=== PATIENT | male | born 1985 | race Caucasian/White ===

== ENCOUNTER 2017-08-16 17:13 | Inpatient (IN) | payer OTHER ==
[2017-08-16] MEDS: ONDANSETRON 4MG/2ML VIAL (J2405) IV (17:33)
[2017-08-16] MEDS: MORPHINE 4 MG/ML 1ML VIAL/SYRINGE (J2270) IV ×3 (17:33→22:14)
[2017-08-16 19:30] LABS: BASO % 0.6 % (0.0-1.0); EOS # 0.3 10^3/uL (0.0-0.50); EOS % 4.5 % (0.0-3.0); HEMATOCRIT 40.4 % (42.0-52.0); IMMATURE GRANULOCYTE % 0.1 % (0-3.0); LYMPH % 28.4 % (24.0-44.0); MEAN CORPUSCULAR HEMOGLOBIN 31.5 pg (27.0-33.0); MEAN CORPUSCULAR HGB CONC 34.7 g/dl (32.0-36.5); MONO # 0.7 10^3/uL (0.0-0.8); MONO % 9.7 % (0.0-5.0); NEUTROPHILS % 56.7 % (36.0-66.0); PLATELET COUNT, AUTOMATED 210 10^3/uL (150-450); RED BLOOD COUNT 4.44 10^6/uL (4.30-6.10); RED CELL DISTRIBUTION WIDTH 11.5 % (11.5-14.5); WHITE BLOOD COUNT 7.1 10^3/uL (4.0-10.0)
[2017-08-16 19:34] LABS: INR 1.02; PROTHROMBIN TIME 13.5 SECONDS (12.4-14.5)
[2017-08-16 19:35] LABS: PARTIAL THROMBOPLASTIN TIME 29.2 SECONDS (26.8-37.9)
[2017-08-16 19:38] LABS: ANION GAP 6 MEQ/L (8-16); BLOOD UREA NITROGEN 22 MG/DL (7-18); CARBON DIOXIDE LEVEL 28 MEQ/L (21-32); CHLORIDE LEVEL 108 MEQ/L (98-107); CREATININE FOR GFR 1.48 MG/DL (0.70-1.30); GLOMERULAR FILTRATION RATE 58.6 (>60); GLUCOSE, FASTING 105 MG/DL (70-100); POTASSIUM SERUM 4.3 MEQ/L (3.5-5.1); SODIUM LEVEL 142 MEQ/L (136-145)
[2017-08-16] MEDS ORDERED: PERCOCET 5MG/325MG TAB PO ×2 (21:45)
[2017-08-16] MEDS ORDERED: MORPHINE 2 MG/ML 1ML SYRINGE (J2270) As Ordered (22:03)
[2017-08-16] MEDS: PERCOCET 5MG/325MG TAB PO (23:32)
[2017-08-17] MEDS: LR 1,000 ML IV ×4 (00:44→23:45)
[2017-08-17] MEDS: MORPHINE 4 MG/ML 1ML VIAL/SYRINGE (J2270) IV (00:49)
[2017-08-17] MEDS: PERCOCET 5MG/325MG TAB PO ×3 (04:06→13:50)
[2017-08-17] MEDS: ceFAZolin 2 GM/D5W 50 ML IV BAG (J0690 PER 500MG) As Ordered (09:07)
[2017-08-17] MEDS ORDERED: MIDAZOLAM INJ 2 MG/2 ML VIAL (J2250) As Ordered (09:29)
[2017-08-17] MEDS ORDERED: PROPOFOL 200 MG/20 ML VIAL As Ordered (09:29)
[2017-08-17] MEDS ORDERED: LIDOCAINE 2% INJ 100 MG/5 ML SDV (FOR ANES.) As Ordered (09:29)
[2017-08-17] MEDS ORDERED: ROCURONIUM BROMIDE 50 MG/5 ML VIAL As Ordered (09:29)
[2017-08-17] MEDS ORDERED: HYDROmorphone HCL 2 MG/ML 1ML VIAL (J1170) As Ordered (09:29)
[2017-08-17] MEDS ORDERED: fentaNYL 250 MCG/5 ML INJECTION (J3010) As Ordered (09:29)
[2017-08-17] MEDS ORDERED: ONDANSETRON 4MG/2ML VIAL (J2405) As Ordered ×2 (09:29→13:18)
[2017-08-17] MEDS ORDERED: dexameTHASONE 4 MG/ML 1ML VIAL (J1100) As Ordered (09:29)
[2017-08-17] MEDS ORDERED: GLYCOPYRROLATE INJ 0.2 MG/ML 2 ML VIAL As Ordered ×2 (09:30)
[2017-08-17] MEDS ORDERED: NEOSTIGMINE 10 MG/10 ML VIAL (J2710) As Ordered (09:30)
[2017-08-17] MEDS ORDERED: ePHEDrine SULFATE 25 MG/5 ML(5MG/ML) SYRINGE As Ordered (10:05)
[2017-08-17] MEDS ORDERED: fentaNYL 100 MCG/2 ML INJECTION (J3010) As Ordered (13:17)
[2017-08-17] MEDS ORDERED: MEPERIDINE INJ 25 MG/ML VIAL (J2175) As Ordered (13:18)
[2017-08-17] MEDS ORDERED: PERCOCET 5MG/325MG TAB As Ordered (13:18)
[2017-08-17] MEDS: MEPERIDINE INJ 25 MG/ML VIAL (J2175) IV ×2 (13:20→13:25)
[2017-08-17] MEDS: ONDANSETRON 4MG/2ML VIAL (J2405) IV (13:20)
[2017-08-17] MEDS: fentaNYL 100 MCG/2 ML INJECTION (J3010) IV ×4 (13:20→13:35)
[2017-08-17] MEDS ORDERED: diphenhydrAMINE 25 MG CAP As Ordered (13:25)
[2017-08-17] MEDS: diphenhydrAMINE 25 MG CAP PO (13:30)
[2017-08-17] MEDS ORDERED: METOCLOPRAMIDE INJ 10MG/2ML VIAL (J2765) IV (13:30)
[2017-08-17] MEDS: ACETAMINOPHEN 500 MG TAB PO ×2 (14:00→22:30)
[2017-08-17] MEDS: oxyCODONE 5MG TAB PO (20:29)
[2017-08-18] MEDS: oxyCODONE 5MG TAB PO ×7 (01:50→22:12)
[2017-08-18] MEDS: ACETAMINOPHEN 500 MG TAB PO ×3 (05:46→22:13)
[2017-08-18 06:57] LABS: HEMATOCRIT 35.2 % (42.0-52.0); HEMOGLOBIN 12.2 g/dl (13.5-17.5); MEAN CORPUSCULAR HEMOGLOBIN 31.9 pg (27.0-33.0); MEAN CORPUSCULAR HGB CONC 34.7 g/dl (32.0-36.5); MEAN CORPUSCULAR VOLUME 91.9 fl (80.0-96.0); PLATELET COUNT, AUTOMATED 169 10^3/uL (150-450); RED BLOOD COUNT 3.83 10^6/uL (4.30-6.10); RED CELL DISTRIBUTION WIDTH 11.7 % (11.5-14.5); WHITE BLOOD COUNT 9.3 10^3/uL (4.0-10.0)
[2017-08-18 07:19] LABS: ANION GAP 6 MEQ/L (8-16); BLOOD UREA NITROGEN 13 MG/DL (7-18); CALCIUM LEVEL 8.4 MG/DL (8.5-10.1); CARBON DIOXIDE LEVEL 30 MEQ/L (21-32); CHLORIDE LEVEL 105 MEQ/L (98-107); CREATININE FOR GFR 1.25 MG/DL (0.70-1.30); GLOMERULAR FILTRATION RATE > 60.0 (>60); GLUCOSE, FASTING 109 MG/DL (70-100); POTASSIUM SERUM 3.7 MEQ/L (3.5-5.1); SODIUM LEVEL 141 MEQ/L (136-145)
[2017-08-18] MEDS: MORPHINE 4 MG/ML 1ML VIAL/SYRINGE (J2270) IV ×4 (08:17→18:18)
[2017-08-18] MEDS: ENOXAPARIN 40 MG/0.4 ML SYRINGE (J1650) SC (08:34)
[2017-08-18] MEDS: SENOKOT S TAB PO ×2 (08:34→20:32)
[2017-08-18] MEDS: MIRALAX *UNIT DOSE* 17GM PACKET PO (08:34)
[2017-08-18] MEDS: MOM 30ML SUSPENSION UDC PO (08:34)
[2017-08-18] MEDS: FLEET ENEMA PR (19:02)
[2017-08-19] MEDS: oxyCODONE 5MG TAB PO ×4 (00:44→09:29)
[2017-08-19] MEDS: ACETAMINOPHEN 500 MG TAB PO (05:00)
[2017-08-19] MEDS: FLEET ENEMA PR (05:46)
[2017-08-19 09:02] LABS: HEMATOCRIT 34.3 % (42.0-52.0); HEMOGLOBIN 11.8 g/dl (13.5-17.5); MEAN CORPUSCULAR HEMOGLOBIN 31.7 pg (27.0-33.0); MEAN CORPUSCULAR HGB CONC 34.4 g/dl (32.0-36.5); MEAN CORPUSCULAR VOLUME 92.2 fl (80.0-96.0); PLATELET COUNT, AUTOMATED 165 10^3/uL (150-450); RED BLOOD COUNT 3.72 10^6/uL (4.30-6.10); RED CELL DISTRIBUTION WIDTH 11.3 % (11.5-14.5); WHITE BLOOD COUNT 9.1 10^3/uL (4.0-10.0)
[2017-08-19 09:18] LABS: ANION GAP 5 MEQ/L (8-16); BLOOD UREA NITROGEN 13 MG/DL (7-18); CALCIUM LEVEL 8.3 MG/DL (8.5-10.1); CARBON DIOXIDE LEVEL 30 MEQ/L (21-32); CHLORIDE LEVEL 104 MEQ/L (98-107); CREATININE FOR GFR 1.25 MG/DL (0.70-1.30); GLOMERULAR FILTRATION RATE > 60.0 (>60); GLUCOSE, FASTING 131 MG/DL (70-100); SODIUM LEVEL 139 MEQ/L (136-145)
[2017-08-19] MEDS: MIRALAX *UNIT DOSE* 17GM PACKET PO (09:27)
[2017-08-19] MEDS: MOM 30ML SUSPENSION UDC PO (09:27)
[2017-08-19] MEDS: LR 1,000 ML IV (09:27)
[2017-08-19] MEDS: ENOXAPARIN 40 MG/0.4 ML SYRINGE (J1650) SC (09:28)
[2017-08-19] MEDS: SENOKOT S TAB PO (09:28)
[2017-08-19] MEDS: BISACODYL 10 MG SUPP PR (09:28)
== END 2017-08-19 16:35 | disposition home or self-care (01) | DRG 494 ==
LOC: M SDC 08-17 15:01 → M MS5PR 08-17 15:02 → M ED 17:13 → M SDC 20:35 → M MS5PR 23:15
PROC: 0QSG04Z Reposition Right Tibia with Internal Fixation Device, Open Approach (ICD-10-PCS; principal; 2017-08-17 08:55)
DX: S82.391A Other fracture of lower end of right tibia, initial encounter for closed fracture (principal); S82.831A Other fracture of upper and lower end of right fibula, initial encounter for closed fracture; W18.42XA Slipping, tripping and stumbling without falling due to stepping into hole or opening, initial encounter; Y92.009 Unspecified place in unspecified non-institutional (private) residence as the place of occurrence of the external cause